=== PATIENT | male | born 1950 | race Caucasian/White ===

== ENCOUNTER 2018-09-28 14:42 | Outpatient (CLI) | payer BC ==
--- NOTE | 2018-09-28 15:27 | RAD ---
Exam: Lumbar spine 4 views: HISTORY: Right-sided low back pain Exam includes flexion and extension lateral views: FINDINGS: Generalized spondylosis. No abnormal translation between flexion and extension. IMPRESSION: Lumbar spondylosis. No significant acute process.
--- NOTE | 2018-09-28 15:45 | ULT ---
RENAL ULTRASOUND: 09/28/18 PROVIDED CLINICAL HISTORY: Back pain. FINDINGS: Right kidney measures about 11.7 x 6.2 x 6.4 cm and demonstrates no evidence for hydronephrosis or ma ss. Left kidney measures about 13.1 x 5.9 x 6.7 cm and demonstrates no evidence for hydronephrosis. There is a circumscribed area of diminished echogenicity seen involving the medial aspect of the left kidn ey in the mid portion measuring about 2.5 cm. This is not definitively characterized sonographically as a simple cyst but may represent such. The urinary bladder appears sonographically unremarkable. IMPRESSION: 1. No evidence for hydronephrosis. 2. Hypoechoic mass involving the left kidney may reflect a cyst but does not meet strict sonogra phic criteria for such. Correlation with any prior imaging such as prior CT examinations may be used for further characterizing this finding. In the absence of comparison studies, three to six month f ollow-up ultrasound versus further characterization with abdominal CT with and without IV contrast re commended. POS: OFF
== END 2018-09-28 14:43 | disposition home or self-care (01) ==
LOC: SCSULT 14:42
PROVIDERS: ATTEND Family Medicine
DX: M54.5 Low back pain (principal); M47.816 Spondylosis without myelopathy or radiculopathy, lumbar region; N28.89 Other specified disorders of kidney and ureter
CPT/HCPCS: 72120; 76770

== ENCOUNTER 2021-03-02 14:29 | Inpatient (IN) | payer MEDICARE, BC ==
[2021-03-02 16:36] VITALS: BMI 32.5
[2021-03-02 19:33] LABS: Hemoglobin A1c 6.7 % (4.0-6.0)
[2021-03-02 19:52] LABS: Troponin I Less than 0.010 ng/mL (< 0.028)
[2021-03-02] MEDS: Dexamethasone 4 mg/ml Vial SLOW IVP SCH (23:42)
[2021-03-03] MEDS: Dexamethasone 4 mg/ml Vial SLOW IVP SCH ×2 (05:49→12:39)
[2021-03-03] MEDS ORDERED: Iopamidol-370 76% 500 ML 1 ML ONE (08:59)
[2021-03-03] MEDS ORDERED: Lorazepam 2 MG/ML VIAL SLOW IVP SCH (09:00)
[2021-03-03] MEDS ORDERED: Magnevist 469MG/ML 20 ML VIAL ONE (09:01)
[2021-03-03] MEDS ORDERED: metFORMIN 500 MG TAB PO SCH (15:00)
[2021-03-03 15:50] VITALS: BP 129/64; TEMP 98.1
[2021-03-03 17:21] LABS: SARS-CoV-2 PCR by NAA Not Detected (NotDetected)
[2021-03-03] MEDS ORDERED: FLU VACC QS2021-22(65YR UP)/PF 240 MCG/0.7 ML SYRINGE IM ONE (18:15)
[2021-03-04] MEDS ORDERED: metFORMIN 500 MG TAB PO SCH (08:00)
[2021-03-04] MEDS ORDERED: Fenofibrate Nanocrystallized 145 MG TAB PO SCH (09:00)
== END 2021-03-03 17:10 | disposition home or self-care (01) | DRG 70 ==
LOC: ONC 16:14
PROVIDERS: ADMIT Internal Medicine; ATTEND Internal Medicine
DX: G93.89 Other specified disorders of brain (principal); G93.6 Cerebral edema; Z66 Do not resuscitate; Z20.822 Contact with and (suspected) exposure to COVID-19; G47.33 Obstructive sleep apnea (adult) (pediatric); R29.810 Facial weakness; E78.1 Pure hyperglyceridemia; E78.5 Hyperlipidemia, unspecified; E11.9 Type 2 diabetes mellitus without complications; G81.94 Hemiplegia, unspecified affecting left nondominant side; G31.84 Mild cognitive impairment of uncertain or unknown etiology; Z80.1 Family history of malignant neoplasm of trachea, bronchus and lung; Z80.0 Family history of malignant neoplasm of digestive organs; Z80.59 Family history of malignant neoplasm of other urinary tract organ; Z79.899 Other long term (current) drug therapy
CPT/HCPCS: 36415; 70553; 71260; 74177; 83036; J1100; J2060; U0003; U0005

== ENCOUNTER 2021-03-13 14:30 | Outpatient (CLI) | payer MEDICARE, BC ==
[2021-03-13 15:49] LABS: Hemoglobin 13.8 g/dL (13.5-17.5); Mean Corpuscular HGB CONC 33.7 g/dL (32.0-36.0); Mean Corpuscular Hemoglobin 30.6 pg (27.0-33.0); Mean Corpuscular Volume 90.7 fl (81.2-95.1); Mean Platelet Volume 11.2 fl (7.4-10.4); Platelet Count 266 10x3/uL (150-450); RBC Distribution Width 13.9 % (11.5-14.5); Red Blood Cell (RBC) Count 4.51 10x6/uL (4.32-5.72); White Blood Cell (WBC) Count 19.4 10x3/uL (3.5-10.5)
[2021-03-13 16:23] LABS: Anion Gap 17 mmol/L (10-20); BUN (Urea Nitrogen) 27 mg/dL (8.4-25.7); Calc. Creatinine Clearance 0 mL/min (70-130); Calcium 9.9 mg/dL (7.8-10.44); Carbon Dioxide 21 mmol/L (23-31); Chloride 106 mmol/L (98-107); Glucose 233 mg/dL (80-115); Potassium 4.6 mmol/L (3.5-5.1); Sodium 139 mmol/L (136-145)
[2021-03-14 08:19] LABS: SARS-CoV-2 PCR by NAA Not Detected (NotDetected)
== END 2021-03-13 14:31 | disposition home or self-care (01) ==
LOC: LABBT 14:30
PROVIDERS: ATTEND Neurological Surgery
DX: Z01.818 Encounter for other preprocedural examination (principal); D49.6 Neoplasm of unspecified behavior of brain; Z20.822 Contact with and (suspected) exposure to COVID-19
CPT/HCPCS: 80048; 85027; U0003; U0005; 93005; 93010

== ENCOUNTER 2021-03-13 14:45 | Inpatient (IN) | payer MEDICARE, BC ==
[2021-03-18] MEDS ORDERED: ceFAZolin 2 GM/DEX 5% 100 ML BAG ONE ×2 (08:46→17:55)
[2021-03-18] MEDS ORDERED: Bacitracin Zinc Ointment 30 gm TUBE ONE (09:13)
[2021-03-18] MEDS ORDERED: Lidocaine 1% PF 5 ML VIAL ONE (09:15)
[2021-03-18] MEDS ORDERED: PROPOFOL 200 MG/20 ML VIAL ONE (09:15)
[2021-03-18] MEDS ORDERED: Ondansetron PF 4 MG/2 ML Vial ONE ×2 (09:15→18:18)
[2021-03-18] MEDS ORDERED: Dexamethasone 20 MG/5 ML VIAL ONE (09:15)
[2021-03-18] MEDS ORDERED: ePHEDrine 50 MG/ML VIAL ONE (09:15)
[2021-03-18] MEDS ORDERED: PHENYLEPHRINE-NS 100 MCG/ML 10 ML SYRINGE ONE (09:15)
[2021-03-18] MEDS ORDERED: Fentanyl 100 MCG/2 ML VIAL ONE ×4 (09:15→15:37)
[2021-03-18] MEDS ORDERED: Rocuronium Bromide 10 MG/ML (10ML VIAL) ONE (09:15)
[2021-03-18] MEDS ORDERED: Mannitol 12.5 GM/50 ML ONE (09:15)
[2021-03-18] MEDS ORDERED: HYDROmorphone 2 MG/ML VIAL ONE (10:36)
[2021-03-18] MEDS ORDERED: SUGAMMADEX SODIUM 200 MG/2 ML VIAL ONE (11:49)
[2021-03-18] MEDS ORDERED: hydrALAZINE 20 MG/ML VIAL ONE ×2 (12:09→13:29)
[2021-03-18] MEDS ORDERED: HYDROmorphone 2 MG/ML VIAL SLOW IVP PRN (12:13)
[2021-03-18] MEDS ORDERED: Promethazine HCl 25 MG/ML VIAL IM PRN ×2 (12:13→14:45)
[2021-03-18] MEDS ORDERED: Meperidine HCl/PF 25 MG/ML VIAL SLOW IVP PRN (12:13)
[2021-03-18] MEDS ORDERED: Promethazine HCl 25 MG/ML VIAL IVPB PRN (12:13)
[2021-03-18] MEDS ORDERED: Ondansetron HCl/PF 4 MG/2 ML Vial IVP PRN (12:13)
[2021-03-18] MEDS ORDERED: hydrALAZINE 20 MG/ML VIAL SLOW IVP SCH (12:15)
[2021-03-18] MEDS ORDERED: Acetaminophen 650 MG Suppository PR PRN (14:45)
[2021-03-18] MEDS ORDERED: diphenhydrAMINE 50 MG CAP PO PRN (14:45)
[2021-03-18] MEDS ORDERED: HYDROcodone/Acetaminophen 7.5/325 mg Tablet PO PRN ×2 (14:45)
[2021-03-18] MEDS ORDERED: Promethazine HCl 25 MG SUPP PR PRN (14:45)
[2021-03-18] MEDS ORDERED: Sodium Chloride 0.9% 1,000 ML IV SCH (14:45)
[2021-03-18] MEDS ORDERED: Promethazine 25 MG TAB PO PRN (14:45)
[2021-03-18] MEDS ORDERED: Mag-Al 1200 mg/1200 mg/30 ML UDCUP PO PRN (14:45)
[2021-03-18] MEDS ORDERED: hydrALAZINE 20 MG/ML VIAL SLOW IVP PRN (14:45)
[2021-03-18] MEDS ORDERED: Acetaminophen 325 MG TAB PO PRN (14:45)
[2021-03-18] MEDS ORDERED: diphenhydrAMINE 50 MG/ML VIAL IVP PRN (14:45)
[2021-03-18] MEDS ORDERED: Morphine 4 MG/ML VIAL SLOW IVP PRN (14:49)
[2021-03-18] MEDS ORDERED: Morphine 4 MG/ML VIAL ONE ×2 (16:48→22:24)
[2021-03-18] MEDS ORDERED: Dexamethasone 1 MG TAB PO SCH (17:00)
[2021-03-18] MEDS: ceFAZolin Sodium/D5W 2 GM in Premix Bag 1 BAG IVPB SCH (18:05)
[2021-03-18] MEDS: Ondansetron PF 4 MG/2 ML Vial SLOW IVP PRN (18:22)
[2021-03-18 19:08] VITALS: BMI 30.9
[2021-03-18] MEDS: Famotidine/PF 20 mg/2ml Vial SLOW IVP SCH (20:26)
[2021-03-18] MEDS ORDERED: Fish Oil 1,000 MG CAP PO SCH (21:00)
[2021-03-18] MEDS: Morphine 4 MG/ML VIAL SLOW IVP PRN (22:26)
[2021-03-18] MEDS ORDERED: Promethazine HCl 25 MG/ML VIAL ONE (23:41)
[2021-03-19] MEDS: ceFAZolin Sodium/D5W 2 GM in Premix Bag 1 BAG IVPB SCH (01:41)
[2021-03-19] MEDS ORDERED: ceFAZolin 2 GM/DEX 5% 100 ML BAG ONE (01:43)
[2021-03-19] MEDS ORDERED: Morphine 4 MG/ML VIAL ONE ×2 (05:36→10:24)
[2021-03-19] MEDS ORDERED: Chloraseptic Spray 180 ml Bottle PO PRN ×2 (06:31→07:28)
[2021-03-19 06:47] LABS: Hemoglobin 13.7 g/dL (14.0-18.0); Mean Corpuscular HGB CONC 34.1 g/dL (32.0-36.0); Mean Corpuscular Hemoglobin 31.9 pg (27.0-31.0); Mean Corpuscular Volume 93.3 fL (78.0-98.0); Mean Platelet Volume 9.2 fL (7.4-10.4); Platelet Count 169 thou/uL (130-400); RBC Distribution Width 13.4 % (11.5-14.5); Red Blood Cell (RBC) Count 4.31 mill/uL (4.70-6.10); White Blood Cell (WBC) Count 22.5 thou/uL (4.8-10.8)
[2021-03-19 07:03] LABS: MDiff Complete? YES
[2021-03-19 07:04] LABS: Band 4 % (5-11); Lymphocytes 12 % (21-51); Metamyelocyte 1 % (0-0); Monocytes 7 % (0-10); Myelocyte 1 % (0-0); Neutrophil 75 % (42-75); Platelet Morphology Comment Appears Adequate; RBC Morphology Normal
[2021-03-19] MEDS ORDERED: Promethazine HCl 25 MG/ML VIAL ONE (07:27)
[2021-03-19] MEDS: metFORMIN 500 MG TAB PO SCH (08:24)
[2021-03-19] MEDS ORDERED: Famotidine/PF 20 mg/2ml Vial ONE (08:56)
[2021-03-19] MEDS: Famotidine/PF 20 mg/2ml Vial SLOW IVP SCH ×2 (09:01→20:53)
[2021-03-19] MEDS ORDERED: Ondansetron PF 4 MG/2 ML Vial ONE (10:24)
[2021-03-19] MEDS: Ondansetron PF 4 MG/2 ML Vial SLOW IVP PRN (10:31)
[2021-03-19] MEDS: Morphine 4 MG/ML VIAL SLOW IVP PRN (10:32)
[2021-03-19] MEDS: Fish Oil 1,000 MG CAP PO SCH (20:51)
[2021-03-19] MEDS ORDERED: HYDROcodone/Acetaminophen 7.5/325 mg Tablet PO PRN (22:22)
[2021-03-20 07:51] VITALS: BP 116/81; TEMP 98.2
[2021-03-20] MEDS: Fish Oil 1,000 MG CAP PO SCH (09:35)
[2021-03-20] MEDS: Famotidine/PF 20 mg/2ml Vial SLOW IVP SCH (09:35)
[2021-03-20] MEDS: metFORMIN 500 MG TAB PO SCH (09:35)
== END 2021-03-20 09:10 | disposition home or self-care (01) | DRG 27 ==
LOC: 2NO 03-18 08:32 → CCU 03-18 11:49 → SURG A 03-19 11:20
PROVIDERS: ADMIT Neurological Surgery; ATTEND Neurological Surgery
PROC: 00B00ZZ Excision of Brain, Open Approach (ICD-10-PCS; principal; 2021-03-18)
DX: D49.6 Neoplasm of unspecified behavior of brain (principal)
CPT/HCPCS: 85025; 88307; 88331; 88334; 88341; 88342; C1713; J0360; J1100; J1170; J2150; J2270; J2405; J2550; J2704; J3010; J3490; Q0169; S0028

== ENCOUNTER 2021-08-14 03:23 | Inpatient (IN) | payer MEDICARE, BC ==
[2021-08-14] MEDS ORDERED: levETIRAcetam in NS 100 ML ONE (04:42)
[2021-08-14] MEDS ORDERED: Dextrose 5% in Water 1,000 ML IV PRN (08:01)
[2021-08-14] MEDS ORDERED: Dextrose 50% Abboject 50 ML SYRINGE SLOW IVP PRN (08:01)
[2021-08-14] MEDS ORDERED: HumaLOG 300 UNITS/3 ML VIAL SC PRN (08:03)
[2021-08-14] MEDS ORDERED: levETIRAcetam in NS 500 MG in Premix Bag 1 BAG IVPB SCH (09:00)
[2021-08-14] MEDS ORDERED: Lorazepam 2 MG/ML VIAL SLOW IVP PRN (13:44)
[2021-08-14] MEDS ORDERED: Famotidine/PF 20 mg/2ml Vial SLOW IVP SCH (13:45)
[2021-08-14] MEDS: Dexamethasone 4 mg/ml Vial SLOW IVP SCH ×2 (14:09→18:46)
[2021-08-14] MEDS: Famotidine/PF 20 mg/2ml Vial SLOW IVP SCH ×2 (14:31→21:16)
[2021-08-14] MEDS ORDERED: Lidocaine 5% Patch TD SCH (15:15)
[2021-08-14] MEDS ORDERED: Lorazepam 2 MG/ML VIAL SLOW IVP SCH (15:30)
[2021-08-14] MEDS ORDERED: Acetaminophen/Codeine 30-300mg Tablet PO PRN ×2 (16:35→16:36)
[2021-08-14] MEDS ORDERED: Acetaminophen 325 MG TAB PO PRN (16:35)
[2021-08-14] MEDS ORDERED: levETIRAcetam in NS 750 MG in Premix Bag 1 BAG IVPB SCH (17:34)
[2021-08-14 19:18] LABS: Bacteria/HPF None Seen HPF (None Seen); Bilirubin Negative (Negative); Blood, Urine 3+ (Negative); Clarity Clear (Clear); Glucose, Urine (Dipstick) Normal (Negative); Ketone, Urine Negative (Negative); Leukocyte Negative Leu/uL (Negative); Nitrite Negative (Negative); Protein, Urine (Dipstick) Negative (Neg-Trace); Specific Gravity, Urine 1.017 (1.002-1.036); Squamous Epithelial None Seen HPF (0-3); Urobilinogen Normal mg/dL (Less than 2); WBC/HPF 0-3 HPF (0-3); pH, Urine 5.5 (5.0-9.0)
[2021-08-15] MEDS: Dexamethasone 4 mg/ml Vial SLOW IVP SCH ×5 (00:21→23:39)
[2021-08-15] MEDS ORDERED: Transdermal Patch Removal TOP SCH (03:15)
[2021-08-15 04:00] LABS: Anion Gap 13 mmol/L (10-20); BUN (Urea Nitrogen) 15 mg/dL (8.4-25.7); Calc. Creatinine Clearance 111 mL/min (70-130); Calcium 9.1 mg/dL (7.8-10.44); Carbon Dioxide 19 mmol/L (23-31); Chloride 109 mmol/L (98-107); Glucose 165 mg/dL (80-115); Potassium 4.2 mmol/L (3.5-5.1); Sodium 137 mmol/L (136-145)
[2021-08-15 04:19] LABS: #Lymphocytes 0.6 thou/uL (1.20-3.40); #Monocytes 0.2 thou/uL (0.11-0.59); %Eosinophils 0.1 % (0.0-10.0); %Lymphocytes 7.1 % (21.0-51.0); %Neutrophils 90.8 % (42.0-75.0); Hemoglobin 11.6 g/dL (14.0-18.0); Mean Corpuscular HGB CONC 34.6 g/dL (32.0-36.0); Mean Corpuscular Hemoglobin 34.3 pg (27.0-31.0); Mean Corpuscular Volume 99.1 fL (78.0-98.0); Mean Platelet Volume 7.8 fL (7.4-10.4); Platelet Count 104 thou/uL (130-400); RBC Distribution Width 15.1 % (11.5-14.5); Red Blood Cell (RBC) Count 3.39 mill/uL (4.70-6.10); White Blood Cell (WBC) Count 7.7 thou/uL (4.8-10.8)
[2021-08-15] MEDS: Famotidine/PF 20 mg/2ml Vial SLOW IVP SCH ×2 (08:51→20:58)
[2021-08-15] MEDS: Lactated Ringer's 1,000 ML IV SCH ×3 (08:52→20:56)
[2021-08-15] MEDS: metFORMIN 500 MG TAB PO SCH (10:25)
[2021-08-16] MEDS: Lactated Ringer's 1,000 ML IV SCH ×2 (02:25→10:44)
[2021-08-16 04:35] LABS: Anion Gap 12 mmol/L (10-20); BUN (Urea Nitrogen) 20 mg/dL (8.4-25.7); Calc. Creatinine Clearance 115 mL/min (70-130); Calcium 8.7 mg/dL (7.8-10.44); Carbon Dioxide 21 mmol/L (23-31); Chloride 110 mmol/L (98-107); Glucose 161 mg/dL (80-115); Sodium 139 mmol/L (136-145)
[2021-08-16 04:42] LABS: #Lymphocytes 0.5 thou/uL (1.20-3.40); #Monocytes 0.3 thou/uL (0.11-0.59); #Neutrophils 6.4 thou/uL (1.40-6.50); %Eosinophils 0.3 % (0.0-10.0); %Lymphocytes 6.4 % (21.0-51.0); %Monocytes 3.8 % (0.0-10.0); %Neutrophils 89.6 % (42.0-75.0); Hemoglobin 10.3 g/dL (14.0-18.0); Mean Corpuscular HGB CONC 33.3 g/dL (32.0-36.0); Mean Corpuscular Hemoglobin 33.8 pg (27.0-31.0); Mean Platelet Volume 8.1 fL (7.4-10.4); Platelet Count 100 thou/uL (130-400); Red Blood Cell (RBC) Count 3.03 mill/uL (4.70-6.10); White Blood Cell (WBC) Count 7.2 thou/uL (4.8-10.8)
[2021-08-16] MEDS: Dexamethasone 4 mg/ml Vial SLOW IVP SCH ×2 (07:14→11:37)
[2021-08-16] MEDS: Famotidine/PF 20 mg/2ml Vial SLOW IVP SCH (08:40)
[2021-08-16] MEDS: metFORMIN 500 MG TAB PO SCH (08:41)
[2021-08-16] MEDS: HumaLOG 300 UNITS/3 ML VIAL SC PRN ×2 (11:37→17:34)
[2021-08-16 13:21] VITALS: BMI 27.8
[2021-08-16] MEDS: Dexamethasone 4 MG TAB PO SCH ×2 (17:34→21:31)
[2021-08-16] MEDS: Famotidine 20 MG TAB PO SCH (21:29)
[2021-08-16] MEDS: levETIRAcetam 500 MG TAB PO SCH (21:30)
[2021-08-17] MEDS: Dexamethasone 4 MG TAB PO SCH ×2 (06:09→13:02)
[2021-08-17] MEDS: HumaLOG 300 UNITS/3 ML VIAL SC PRN (06:10)
[2021-08-17 08:49] VITALS: BP 116/66; TEMP 97.2
[2021-08-17] MEDS ORDERED: Fish Oil 1,000 MG CAP PO SCH (09:00)
[2021-08-17] MEDS ORDERED: Cyanocobalamin (Vitamin B-12) 1,000 MCG TAB PO SCH (09:00)
[2021-08-17] MEDS: metFORMIN 500 MG TAB PO SCH (09:44)
[2021-08-17] MEDS: Famotidine 20 MG TAB PO SCH (09:45)
[2021-08-17] MEDS: levETIRAcetam 500 MG TAB PO SCH (09:46)
== END 2021-08-17 13:50 | disposition home or self-care (01) | DRG 54 ==
LOC: ERS 03:23 → ERHOLD 05:47 → NEURO 11:07 → CCU 20:13 → MSONC 08-15 18:14
PROVIDERS: ADMIT Family Medicine; ATTEND Family Medicine
DX: C71.9 Malignant neoplasm of brain, unspecified (principal); G93.6 Cerebral edema; G93.5 Compression of brain; A41.9 Sepsis, unspecified organism; G81.94 Hemiplegia, unspecified affecting left nondominant side; Z66 Do not resuscitate; Z20.822 Contact with and (suspected) exposure to COVID-19; E11.9 Type 2 diabetes mellitus without complications; E78.5 Hyperlipidemia, unspecified; K76.0 Fatty (change of) liver, not elsewhere classified; D69.6 Thrombocytopenia, unspecified; E78.00 Pure hypercholesterolemia, unspecified; D64.9 Anemia, unspecified; T45.1X5A Adverse effect of antineoplastic and immunosuppressive drugs, initial encounter; Z51.5 Encounter for palliative care; Z88.0 Allergy status to penicillin; Z79.84 Long term (current) use of oral hypoglycemic drugs; Z79.899 Other long term (current) drug therapy
CPT/HCPCS: 36415; 36416; 70450; 70553; 80048; 81001; 84145; 85025; 93005; 96365; J1100; J1815; J1953; J3490; J7120; J8540; S0028

== ENCOUNTER 2021-10-08 13:01 | Outpatient (CLI) | payer BC ==
[2021-10-09 00:49] LABS: SARS-CoV-2 PCR by NAA Not Detected (NotDetected)
== END 2021-10-08 13:02 | disposition home or self-care (01) ==
LOC: LABBT 13:01
PROVIDERS: ATTEND Internal Medicine
DX: Z20.822 Contact with and (suspected) exposure to COVID-19 (principal)
CPT/HCPCS: U0003; U0005

== ENCOUNTER 2021-10-11 07:02 | Day surgery (SDC) | payer BC ==
[2021-10-09 13:28] VITALS: BMI 25.9
[2021-10-11] MEDS ORDERED: PROPOFOL 200 MG/20 ML VIAL ONE (08:46)
[2021-10-11] MEDS ORDERED: Lidocaine 1% PF 5 ML VIAL ONE (08:46)
== END 2021-10-11 10:15 | disposition home or self-care (01) ==
LOC: SDC 07:02
PROVIDERS: ATTEND Internal Medicine
PROC: 0D758ZZ Dilation of Esophagus, Via Natural or Artificial Opening Endoscopic (ICD-10-PCS; principal; 2021-10-11)
DX: R13.19 Other dysphagia (principal); E11.9 Type 2 diabetes mellitus without complications; E78.5 Hyperlipidemia, unspecified; G47.33 Obstructive sleep apnea (adult) (pediatric); Z88.0 Allergy status to penicillin
CPT/HCPCS: J2704

== ENCOUNTER 2022-01-25 21:20 | Emergency (ER) | payer BC ==
[2022-01-25] MEDS ORDERED: levETIRAcetam 500 MG/5 ML VIAL ONE (21:59)
[2022-01-25 22:37] LABS: Hemoglobin 11.9 g/dL (14.0-18.0); Mean Corpuscular HGB CONC 35.8 g/dL (32.0-36.0); Mean Corpuscular Hemoglobin 35.7 pg (27.0-31.0); Mean Corpuscular Volume 99.9 fL (78.0-98.0); RBC Distribution Width 14.5 % (11.5-14.5); Red Blood Cell (RBC) Count 3.33 mill/uL (4.70-6.10); White Blood Cell (WBC) Count 8.1 thou/uL (4.8-10.8)
[2022-01-25 22:42] LABS: ALT (SGPT) 43 U/L (8-55); AST (SGOT) 23 U/L (5-34); Albumin 3.7 g/dL (3.4-4.8); Alkaline Phosphatase 124 U/L (40-110); Anion Gap 16 mmol/L (10-20); BUN (Urea Nitrogen) 24 mg/dL (8.4-25.7); Bilirubin, Total 0.6 mg/dL (0.2-1.2); Calc. Creatinine Clearance 0 mL/min (70-130); Calcium 9.1 mg/dL (7.8-10.44); Carbon Dioxide 22 mmol/L (23-31); Chloride 104 mmol/L (98-107); Estimated GFR 92; Globulin 2.6 g/dL (2.4-3.5); Glucose 106 mg/dL (83-110); Potassium 3.7 mmol/L (3.5-5.1); Protein, Total 6.3 g/dL (5.8-8.1); Sodium 138 mmol/L (136-145)
[2022-01-25 22:48] LABS: #Eosinphils 0.1 thou/uL (0.0-0.7); #Lymphocytes 1.3 thou/uL (1.20-3.40); #Monocytes 0.9 thou/uL (0.11-0.59); #Neutrophils 5.7 thou/uL (1.40-6.50); %Basophils 0.3 % (0.0-1.0); %Eosinophils 1.5 % (0.0-10.0); %Lymphocytes 16.6 % (21.0-51.0); %Monocytes 10.6 % (0.0-10.0); Mean Platelet Volume 7.6 fL (7.4-10.4); Platelet Count 109 thou/uL (130-400); Platelet Morphology Comment Appears Decreased
[2022-01-25 23:53] LABS: Bilirubin Negative (Negative); Blood, Urine Negative (Negative); Clarity Clear (Clear); Glucose, Urine (Dipstick) Normal (Negative); Ketone, Urine Negative (Negative); Leukocyte Negative Leu/uL (Negative); Nitrite Negative (Negative); Protein, Urine (Dipstick) Negative (Neg-Trace); Specific Gravity, Urine 1.009 (1.002-1.036); Urobilinogen Normal mg/dL (Less than 2)
[2022-01-26] MEDS ORDERED: Dexamethasone 10 MG/ML VIAL ONE (00:27)
== END 2022-01-26 00:33 | disposition home or self-care (01) ==
LOC: ERS 21:20
DX: I62.03 Nontraumatic chronic subdural hemorrhage (principal); G93.6 Cerebral edema; R56.9 Unspecified convulsions; E11.9 Type 2 diabetes mellitus without complications
CPT/HCPCS: 36415; 70450; 80053; 81003; 85025; 96374; 96375; J1100; J1953

== ENCOUNTER 2022-01-31 09:29 | Outpatient (CLI) | payer BC | END 2022-01-31 09:30 | disposition home or self-care (01) | LOC: SCSMRI 09:29 | PROVIDERS: ATTEND Internal Medicine Hematology & Oncology | DX: C71.9 Malignant neoplasm of brain, unspecified (principal) | CPT/HCPCS: 70553 ==

== ENCOUNTER 2022-04-21 16:05 | Inpatient (IN) | payer MEDICARE, BC ==
[2022-04-21] MEDS ORDERED: Dexamethasone 10 MG/ML VIAL ONE (16:32)
[2022-04-21] MEDS ORDERED: levETIRAcetam 500 MG/5 ML VIAL ONE (16:32)
[2022-04-21 17:19] LABS: #Eosinphils 0.1 thou/uL (0.0-0.7); #Lymphocytes 0.6 thou/uL (1.20-3.40); #Monocytes 0.2 thou/uL (0.11-0.59); #Neutrophils 4.3 thou/uL (1.40-6.50); %Eosinophils 1.5 % (0.0-10.0); %Lymphocytes 12.1 % (21.0-51.0); %Monocytes 4.4 % (0.0-10.0); Hemoglobin 12.3 g/dL (14.0-18.0); Mean Corpuscular HGB CONC 34.4 g/dL (32.0-36.0); Mean Corpuscular Hemoglobin 35.4 pg (27.0-31.0); Mean Platelet Volume 7.1 fL (7.4-10.4); Platelet Count 108 10x3/uL (130-400); RBC Distribution Width 14.8 % (11.5-14.5); Red Blood Cell (RBC) Count 3.48 mill/uL (4.70-6.10); White Blood Cell (WBC) Count 5.2 10x3/uL (4.8-10.8)
[2022-04-21 17:30] LABS: ALT (SGPT) 43 U/L (8-55); AST (SGOT) 21 U/L (5-34); Albumin 3.7 g/dL (3.4-4.8); Alkaline Phosphatase 137 U/L (40-110); Anion Gap 16 mmol/L (10-20); BUN (Urea Nitrogen) 9 mg/dL (8.4-25.7); Bilirubin, Total 0.7 mg/dL (0.2-1.2); CK (CPK) 32 U/L (30-200); Calc. Creatinine Clearance 0 mL/min (70-130); Calcium 9.1 mg/dL (7.8-10.44); Carbon Dioxide 20 mmol/L (23-31); Chloride 107 mmol/L (98-107); Estimated GFR 97; Globulin 2.7 g/dL (2.4-3.5); Glucose 163 mg/dL (83-110); Lipase 13 U/L (8-78); Potassium 4.1 mmol/L (3.5-5.1); Protein, Total 6.4 g/dL (5.8-8.1); Sodium 139 mmol/L (136-145)
[2022-04-21] MEDS ORDERED: Acetaminophen 325 MG TAB PO PRN (18:49)
[2022-04-21] MEDS ORDERED: levETIRAcetam 500 MG TAB PO SCH (19:15)
[2022-04-21 20:10] VITALS: BMI 25.3
[2022-04-22 05:14] LABS: #Lymphocytes 0.4 thou/uL (1.20-3.40); #Monocytes 0.2 thou/uL (0.11-0.59); #Neutrophils 4.4 thou/uL (1.40-6.50); %Basophils 0.6 % (0.0-1.0); %Eosinophils 0.5 % (0.0-10.0); %Lymphocytes 7.4 % (21.0-51.0); %Monocytes 3.3 % (0.0-10.0); %Neutrophils 88.3 % (42.0-75.0); Hemoglobin 10.2 g/dL (14.0-18.0); Mean Corpuscular HGB CONC 33.3 g/dL (32.0-36.0); Mean Corpuscular Hemoglobin 34.3 pg (27.0-31.0); Platelet Count 116 10x3/uL (130-400); RBC Distribution Width 14.9 % (11.5-14.5); Red Blood Cell (RBC) Count 2.98 mill/uL (4.70-6.10)
[2022-04-22 05:54] LABS: Anion Gap 12 mmol/L (10-20); BUN (Urea Nitrogen) 10 mg/dL (8.4-25.7); Calc. Creatinine Clearance 138 mL/min (70-130); Calcium 8.8 mg/dL (7.8-10.44); Carbon Dioxide 23 mmol/L (23-31); Chloride 107 mmol/L (98-107); Estimated GFR 101; Glucose 168 mg/dL (83-110); Potassium 3.9 mmol/L (3.5-5.1); Sodium 138 mmol/L (136-145)
[2022-04-22] MEDS ORDERED: Dexamethasone 4 MG TAB PO SCH (08:00)
[2022-04-22] MEDS ORDERED: levETIRAcetam 500 MG TAB PO SCH (09:00)
[2022-04-22] MEDS: levETIRAcetam 500 MG TAB PO SCH (20:18)
[2022-04-23 07:19] LABS: #Lymphocytes 0.6 thou/uL (1.20-3.40); #Monocytes 0.5 thou/uL (0.11-0.59); #Neutrophils 4.7 thou/uL (1.40-6.50); %Eosinophils 0.2 % (0.0-10.0); %Lymphocytes 10.7 % (21.0-51.0); %Monocytes 8.4 % (0.0-10.0); %Neutrophils 80.7 % (42.0-75.0); Hemoglobin 9.5 g/dL (14.0-18.0); Mean Corpuscular HGB CONC 33.5 g/dL (32.0-36.0); Mean Corpuscular Hemoglobin 34.6 pg (27.0-31.0); Mean Platelet Volume 7.3 fL (7.4-10.4); Platelet Count 113 10x3/uL (130-400); RBC Distribution Width 14.6 % (11.5-14.5); Red Blood Cell (RBC) Count 2.74 mill/uL (4.70-6.10); White Blood Cell (WBC) Count 5.9 10x3/uL (4.8-10.8)
[2022-04-23 07:37] LABS: Anion Gap 11 mmol/L (10-20); BUN (Urea Nitrogen) 13 mg/dL (8.4-25.7); Calc. Creatinine Clearance 126 mL/min (70-130); Calcium 8.5 mg/dL (7.8-10.44); Carbon Dioxide 22 mmol/L (23-31); Chloride 109 mmol/L (98-107); Estimated GFR 99; Glucose 144 mg/dL (83-110); Potassium 3.4 mmol/L (3.5-5.1); Sodium 139 mmol/L (136-145)
[2022-04-23] MEDS ORDERED: Dexamethasone 4 MG TAB PO SCH (08:00)
[2022-04-23] MEDS: levETIRAcetam 500 MG TAB PO SCH (08:55)
[2022-04-23 11:54] VITALS: BP 109/67; TEMP 97.8
== END 2022-04-23 13:35 | disposition home or self-care (01) | DRG 54 ==
LOC: ERS 16:05 → NEURO 18:10
PROVIDERS: ADMIT Family Medicine; ATTEND Family Medicine
DX: C71.9 Malignant neoplasm of brain, unspecified (principal); G93.6 Cerebral edema; G40.919 Epilepsy, unspecified, intractable, without status epilepticus; Z66 Do not resuscitate; Z20.822 Contact with and (suspected) exposure to COVID-19; E11.9 Type 2 diabetes mellitus without complications; G93.89 Other specified disorders of brain; E78.00 Pure hypercholesterolemia, unspecified; Z88.0 Allergy status to penicillin
CPT/HCPCS: 36415; 70450; 70553; 80048; 80053; 82550; 83690; 85025; 93005; 95712; 95819; 95957; J1100; J1953; J8540; U0003; U0005

== ENCOUNTER 2023-01-27 12:29 | Day surgery (SDC) | payer BC ==
[2023-01-27] MEDS ORDERED: diphenhydrAMINE 25 MG CAP PO SCH (13:15)
[2023-01-27] MEDS ORDERED: Acetaminophen 500 MG TAB PO SCH (13:15)
[2023-01-27] MEDS ORDERED: Acetaminophen 500 MG TAB ONE (13:23)
[2023-01-27 15:22] VITALS: BP 101/58; TEMP 97.7
== END 2023-01-27 15:22 | disposition home or self-care (01) ==
LOC: ONC/OP 12:29
PROVIDERS: ATTEND Internal Medicine Hematology & Oncology
DX: D64.9 Anemia, unspecified (principal); D69.6 Thrombocytopenia, unspecified
CPT/HCPCS: 36430; 86850; 86900; 86901; J1642; P9035